=== PATIENT | male | born 1975 | race Caucasian/White ===

== ENCOUNTER → 2018-11-06 09:38 | Outpatient (CLI) | payer OTHER, SELFPAY ==
[2018-11-06 10:32] LABS: Blood Urea Nitrogen 16 mg/dL (9-20); Calcium 9.8 mg/dL (8.4-10.2); Carbon Dioxide 25 mmol/L (22-32); Chloride 103 mmol/L (98-107); Cholesterol 209 mg/dL (140-199); Estimated Glomerular Filt Rate > 60.0 mL/min (>60); Glucose 103 mg/dL (70-100); HDL Cholesterol 38 mg/dL (40-60); HEMOLYSIS < 15 (0-50); LDL Cholesterol Calculated 147 mg/dL (<100); Potassium 4.7 mmol/L (3.4-5.1); Sodium 140 mmol/L (137-145); Triglycerides 122 mg/dL (35-150)
[2018-11-06 11:24] LABS: Vitamin D 25 Hydroxy (D3) 54.4 ng/mL (30.0-100.0)
[2018-11-06 11:40] LABS: Thyroid Stimulating Hormone 0.69 uIU/mL (0.47-4.68)
== END ==
PROVIDERS: PCP Student in an Organized Health Care Education/Training Program; Visit Provider Student in an Organized Health Care Education/Training Program
DX: E55.9 Vitamin D deficiency, unspecified (principal); E78.2 Mixed hyperlipidemia; I10 Essential (primary) hypertension; N14.1 Nephropathy induced by other drugs, medicaments and biological substances; T46.5X1A Poisoning by other antihypertensive drugs, accidental (unintentional), initial encounter
CPT/HCPCS: 36415; 80048; 80061; 82306; 84443

== ENCOUNTER 2019-01-10 10:51 | Emergency (ER) | payer OTHER, SELFPAY ==
[2019-01-10 10:56] VITALS: BP 184/98; PULSE 77; RESP 18; TEMP 37.1; O2SAT 100
[2019-01-10 11:21] VITALS: BP 172/91; PULSE 77; RESP 22; O2SAT 98
--- NOTE | 2019-01-10 11:21 | DI.RAD.S_ITS ---
PROCEDURE: XR CHEST 1V INDICATIONS: chest pain TECHNIQUE: One view of the chest was acquired. COMPARISON: None. FINDINGS: Surgical changes and devices: None. Lungs and pleura: Lungs are clear. No pleural effusions or pneumothorax. Mediastinum: Mediastinal contours appear normal. Heart size is normal. Bones and chest wall: No suspicious bony lesions. Overlying soft tissues appear unremarkable. IMPRESSION: No acute cardiopulmonary disease. Dictated by: Billy Clark M.D. on 01/10/2019 at 12:10 Approved by: Billy Clark M.D. on 01/10/2019 at 12:11
--- NOTE | 2019-01-10 11:24 | ED_ITS ---
HPI - General Adult General Chief complaint: Hypertension Stated complaint: BLOOD PRESSURE HIGH,DISCOMFORT L SHOULDER Time Seen by Provider: 01/10/19 11:13 Source: patient Mode of arrival: ambulatory Limitations: no limitations History of Present Illness HPI narrative: Patient is a 43-year-old male presents with elevated blood pressure. He has a history of hypertension takes atenolol and lisinopril. His atenolol he states was recently increased under. However he takes his blood pressure once a week he took it on Saturday he noted it was a little elevated. He took it again today remained elevated. He has also been having ongoing left shoulder discomfort for weeks. It is not any worse today. He has no chest pain. His shoulder hurts whenever he moves it. Related Data Previous Rx's Medication Instructions Recorded atenolol 50 mg tablet 75 mg PO QDAY #135 tab 11/11/18 lisinopril 40 mg tablet 40 mg PO QDAY #90 tab 11/11/18 Allergies Allergy/AdvReac Type Severity Reaction Status Date / Time hydrochlorothiazide AdvReac Severe Arrythmia Verified 11/06/18 09:30 Review of Systems Review of Systems GENERAL: Denies chills, fatigue, malaise, fever, sweats, travel HEENT: Denies sinus pain, ear pain, sore throat, difficulty swallowing, neck pain RESPIRATORY: Denies dyspnea, cough, wheezing, hemoptysis, sputum. CARDIOVASCULAR: See HPI GASTROINTESTINAL: Denies nausea, vomiting, abdominal pain, diarrhea, constipation, melena. : Denies dysuria, frequency, incontinence, hematuria, urinary retention, flank pain. MUSCULOSKELETAL: Denies weakness, joint pain, or bony pain SKIN: No rash, no erythema, no pruritus NEUROLOGIC: Denies weakness, dizziness, headache, numbness, change in speech, confusion PSYCHIATRIC: No concerning psychosocial issues. 12 point review of systems is negative except for those stated above and HPI [facility] Medical History Atrial fibrillation (Chronic) Hypertension (Chronic) Family History Father No problems noted. Social History Smoking Status: Never smoker Family History Father No problems noted. Social History Smoking Status: Never smoker Exam Initial Vital Signs Initial Vital Signs: Vital Signs Temperature 98.7 F 01/10/19 10:56 Pulse Rate 77 01/10/19 10:56 Respiratory Rate 18 01/10/19 10:56 Blood Pressure 184/98 H 01/10/19 10:56 Pulse Oximetry 100 01/10/19 10:56 GENERAL: Well-appearing, well-nourished and in no acute distress. HEENT: Head atraumatic,EOMI, pupils reactive CARDIOVASCULAR: Regular rate and rhythm without murmurs, rubs or gallops. RESPIRATORY: Breath sounds equal bilaterally, no wheezes rales or rhonchi. ABDOMEN: Soft, nontender. Normoactive bowel sounds all 4 quadrants. No guarding or rebound. EXTREMITIES: Normal range of motion, no clubbing or edema. Neurovascularly intact NEUROLOGICAL: Alert and oriented x4.Normal gait and speech. Cranial nerves II through XII grossly intact. SKIN: Warm, dry, no laceration, no petechiae, no rashes or lesions. Course Orders Ordered: ED Orders 01/10/19 11:21 XR chest 1V Stat 01/10/19 11:45 Complete Blood Count AUTO DIFF Stat Comprehensive Metabolic Panel Stat Lipase Stat Troponin & CK Cardiac Panel Stat Vital Signs - 8 hr 01/10/19 10:56 01/10/19 11:21 01/10/19 12:00 Temperature 98.7 F Pulse Rate 77 77 80 Respiratory Rate 18 22 16 Blood Pressure 184/98 H Blood Pressure [Left Arm] 172/91 H 166/92 H Pulse Oximetry 100 98 99 01/10/19 12:09 01/10/19 12:52 Temperature Pulse Rate 72 74 Respiratory Rate 71 H 14 Blood Pressure Blood Pressure [Left Arm] 166/92 H 166/100 H Pulse Oximetry 98 Medical Decision Making Lab Data Lab results reviewed: Yes I reviewed the patient's lab results. Result diagrams: 01/10/19 11:45 01/10/19 11:45 Lab Results 01/10/19 01/10/19 Range/Units 11:45 11:45 WBC 4.7 (4.5-11.0) X10^3/uL RBC 4.82 (4.5-5.9) X10^6/uL Hgb 14.9 (13.5-17.5) g/dL Hct 42.1 (41-53) % MCV 87.3 (80-100) fL MCH 30.9 (26-34) PG MCHC 35.4 (30-36) % RDW 12.8 (11.6-14.8) % Plt Count 183 (150-400) X10^3/uL Neut % (Auto) 65.8 (50-75) % Lymph % (Auto) 21.4 L (25-40) % [place] % (Auto) 8.9 (3-14) % Eos % (Auto) 3.4 (2-4) % Baso % (Auto) 0.5 (0-2) % Neut # (Auto) 3100 (3595-6338) /uL Lymph # (Auto) 1000 L (4628-5167) /uL [place] # (Auto) 400 (0-900) /uL Eos # (Auto) 200 (0-450) /uL Baso # (Auto) 0 (0-100) /uL Sodium 141 (137-145) mmol/L Potassium 3.8 (3.4-5.1) mmol/L Chloride 105 (98-107) mmol/L Carbon Dioxide 26 (22-32) mmol/L BUN 15 (9-20) mg/dL Creatinine 0.90 (0.66-1.25) mg/dL Estimated GFR > 60.0 (>60) mL/min BUN/Creatinine Ratio 16.7 (6-22) Glucose 122 H (70-100) mg/dL Calcium 9.5 (8.4-10.2) mg/dL Total Bilirubin 0.8 (0.2-1.3) mg/dL AST 24 (17-59) IU/L ALT 34 (21-72) IU/L Alkaline Phosphatase 71 (38-126) U/L Total Creatine Kinase 25 L (55-170) U/L CK-MB (CK-2) TNP CK-MB (CK-2) Rel Index TNP Troponin I < 0.012 (0.01-0.034) ng/mL Total Protein 7.1 (6.3-8.2) g/dL Albumin 4.6 (3.5-5.0) g/dL Globulin 2.5 (1.7-4.1) g/dL Albumin/Globulin Ratio 1.8 (1.0-2.8) Lipase 27 (23-300) U/L Imaging Data Chest x-ray: Radiologist's impression: PROCEDURE: XR CHEST 1V INDICATIONS: chest pain TECHNIQUE: One view of the chest was acquired. COMPARISON: None. FINDINGS: Surgical changes and devices: None. Lungs and pleura: Lungs are clear. No pleural effusions or pneumothorax. Mediastinum: Mediastinal contours appear normal. Heart size is normal. Bones and chest wall: No suspicious bony lesions. Overlying soft tissues appear unremarkable. IMPRESSION: No acute cardiopulmonary disease. Dictated by: Billy Clark M.D. on 01/10/2019 at 12:10 ECG Data Attestation: I personally reviewed and interpreted this ECG as follows: Prior ECG tracings: available for review Interpretation: EKG 1. Normal sinus rhythm rate no ST changes does have some large T-waves no prior EKG 2. Normal sinus rhythm rate 77 T-waves remain unchanged no ST depressions as MDM Narrative Medical decision making narrative: Patient has had chronic ongoing left shoulder discomfort worse with movement not any worse today. He remains completely asymptomatic in the ED. His blood pressure remains relatively unchanged although slightly decreased. At this time I recommend he follow up with his PCP for management of his chronic hypertension no sign of end-organ. Discharge Plan Departure Patient Disposition: Home Clinical Impression: Hypertension Qualifiers: Hypertension type: essential hypertension Qualified Code(s): I10 - Essential (primary) hypertension Discharge Date/Time: 01/10/19 13:00 Interventions: ED Discharge Assessment Last Done: 01/10/19 12:59 Instructions: DI for High Blood Pressure Activity Restrictions/Additional Instructions: *You have been diagnosed with hypertension *What to do: At this time please discuss with her primary care provider for management of your blood pressure. Her medications will likely need to be adjusted. Recommend taking her blood pressure once daily at the same time every day and logging *Continue to take medications as directed *Follow up with your primary care provider in 2-3 days *Return to ER if you should have chest pain shortness of breath headache or any new, worsening or concerning symptoms Prescriptions: No Action atenolol 50 mg tablet 75 mg PO QDAY Qty: 135 RF: 3 lisinopril [Zestril] 40 mg tablet 40 mg PO QDAY Qty: 90 RF: 3 Referrals: Heriberto Jimenes MD [Primary Care Provider] -
--- NOTE | 2019-01-10 11:25 | PC.NURSE ---
Pt with history of hypertension. Stated took bp this morning was elevated. Takes atenolol and lisinopril for bp. Reports having shoulder pain over the past few days. Is unsure if related to bp.
[2019-01-10 12:00] VITALS: BP 166/92; PULSE 80; RESP 16; O2SAT 99
[2019-01-10 12:08] LABS: Add Manual Diff / Slide Review NO; Basophils Absolute Auto 0 /uL (0-100); Basophils Percent Auto 0.5 % (0-2); Eosinophils Absolute Auto 200 /uL (0-450); Eosinophils Percent Auto 3.4 % (2-4); Hematocrit 42.1 % (41-53); Hemoglobin 14.9 g/dL (13.5-17.5); Lymphocytes Absolute Auto 1000 /uL (1100-4500); Lymphocytes Percent Auto 21.4 % (25-40); Mean Corpuscular HGB Conc 35.4 % (30-36); Mean Corpuscular Hemoglobin 30.9 PG (26-34); Mean Corpuscular Volume 87.3 fL (80-100); Monocytes Absolute Auto 400 /uL (0-900); Monocytes Percent Auto 8.9 % (3-14); Neutrophils Absolute Auto 3100 /uL (1500-7000); Neutrophils Percent Auto 65.8 % (50-75); Platelet Count 183 X10^3/uL (150-400); Red Blood Cell Count 4.82 X10^6/uL (4.5-5.9); Red Cell Distribution Width 12.8 % (11.6-14.8); White Blood Cell Count 4.7 X10^3/uL (4.5-11.0)
[2019-01-10 12:09] VITALS: BP 166/92; PULSE 72; RESP 71
[2019-01-10 12:19] LABS: Alanine Aminotransferase 34 IU/L (21-72); Albumin 4.6 g/dL (3.5-5.0); Albumin Globulin Ratio 1.8 (1.0-2.8); Alkaline Phosphatase 71 U/L (38-126); Aspartate Aminotransferase 24 IU/L (17-59); BUN Creatinine Ratio 16.7 (6-22); Bilirubin Total 0.8 mg/dL (0.2-1.3); Blood Urea Nitrogen 15 mg/dL (9-20); Calcium 9.5 mg/dL (8.4-10.2); Carbon Dioxide 26 mmol/L (22-32); Chloride 105 mmol/L (98-107); Creatine Kinase 25 U/L (55-170); Estimated Glomerular Filt Rate > 60.0 mL/min (>60); Globulin 2.5 g/dL (1.7-4.1); Glucose 122 mg/dL (70-100); HEMOLYSIS 17 (0-50); Lipase 27 U/L (23-300); Potassium 3.8 mmol/L (3.4-5.1); Sodium 141 mmol/L (137-145); Total Protein 7.1 g/dL (6.3-8.2)
[2019-01-10 12:30] LABS: Troponin I < 0.012 ng/mL (0.01-0.034)
[2019-01-10 12:52] VITALS: BP 166/100; PULSE 74; RESP 14; O2SAT 98
== END 2019-01-10 13:00 | disposition home or self-care (01) ==
PROVIDERS: Emergency Provider Emergency Medicine; PCP Student in an Organized Health Care Education/Training Program
DX: I10 Essential (primary) hypertension (principal)
CPT/HCPCS: 36591; 71045; 80053; 82550; 83690; 84484; 85025; 93005; 99283; 99284

== ENCOUNTER → 2019-02-14 08:02 | Outpatient (CLI) | payer OTHER, SELFPAY ==
[2019-02-14 09:29] LABS: Blood Urea Nitrogen 19 mg/dL (9-20); Calcium 9.6 mg/dL (8.4-10.2); Carbon Dioxide 29 mmol/L (22-32); Chloride 101 mmol/L (98-107); Estimated Glomerular Filt Rate > 60.0 mL/min (>60); Glucose 119 mg/dL (70-100); HEMOLYSIS < 15 (0-50); Sodium 138 mmol/L (137-145)
== END ==
PROVIDERS: PCP Student in an Organized Health Care Education/Training Program; Visit Provider Student in an Organized Health Care Education/Training Program
DX: I10 Essential (primary) hypertension (principal); Z79.899 Other long term (current) drug therapy
CPT/HCPCS: 36415; 80048

== ENCOUNTER → 2020-03-04 12:02 | Outpatient (CLI) | payer OTHER, SELFPAY ==
[2020-03-04 14:58] LABS: Creatinine Urine Random 150.7 mg/dL
[2020-03-04 15:03] LABS: Microalbumi Creatinin Ratio Ur 15.9 ug/mg CR (<30); Microalbumin Urine Random 2.4 mg/dL (0-1.6)
[2020-03-04 18:16] LABS: BUN Creatinine Ratio 16.7 (6-22); Blood Urea Nitrogen 18 mg/dL (9-20); Calcium 10.2 mg/dL (8.4-10.2); Carbon Dioxide 27 mmol/L (22-32); Chloride 102 mmol/L (98-107); Estimated Glomerular Filt Rate > 60.0 mL/min (>60); Glucose 110 mg/dL (70-100); HEMOLYSIS < 15 (0-50); Potassium 4.2 mmol/L (3.4-5.1); Sodium 139 mmol/L (137-145)
== END ==
PROVIDERS: PCP Student in an Organized Health Care Education/Training Program; Referring Provider Student in an Organized Health Care Education/Training Program; Visit Provider Student in an Organized Health Care Education/Training Program
DX: I10 Essential (primary) hypertension (principal)
CPT/HCPCS: 36415; 80048; 82043; 82570

== ENCOUNTER → 2021-01-19 08:47 | Outpatient (CLI) | payer OTHER, SELFPAY ==
[2021-01-19] MEDS: COVID-19 VACC #1, MRNA(MOD) 100 MCG/0.5 ML VIAL IM (08:53)
== END ==
PROVIDERS: PCP Student in an Organized Health Care Education/Training Program; Visit Provider Internal Medicine
DX: Z23 Encounter for immunization (principal)
CPT/HCPCS: 0011A; 91301

== ENCOUNTER → 2021-02-16 08:36 | Outpatient (CLI) | payer OTHER, SELFPAY ==
[2021-02-16] MEDS: COVID-19 VACC #2, MRNA(MOD) 100 MCG/0.5 ML VIAL IM (08:42)
== END ==
PROVIDERS: PCP Student in an Organized Health Care Education/Training Program; Visit Provider Internal Medicine
DX: Z23 Encounter for immunization (principal)
CPT/HCPCS: 0012A; 91301

== ENCOUNTER → 2021-04-25 10:44 | Outpatient (CLI) | payer OTHER, SELFPAY ==
[2021-04-25 12:03] LABS: BUN Creatinine Ratio 15.6 (6-22); Blood Urea Nitrogen 17 mg/dL (9-20); Calcium 9.9 mg/dL (8.4-10.2); Carbon Dioxide 27 mmol/L (22-32); Chloride 103 mmol/L (98-107); Estimated Glomerular Filt Rate > 60.0 mL/min (>60); Glucose 118 mg/dL (70-100); HEMOLYSIS < 15 (0-50); Potassium 3.9 mmol/L (3.4-5.1); Sodium 140 mmol/L (137-145)
== END ==
PROVIDERS: PCP Student in an Organized Health Care Education/Training Program; Referring Provider Student in an Organized Health Care Education/Training Program; Visit Provider Student in an Organized Health Care Education/Training Program
DX: I10 Essential (primary) hypertension (principal)
CPT/HCPCS: 36415; 80048

== ENCOUNTER → 2022-06-21 08:33 | Outpatient (CLI) | payer OTHER, SELFPAY ==
[2022-06-21 11:22] LABS: BUN Creatinine Ratio 14.3 (6-22); Blood Urea Nitrogen 18 mg/dL (9-20); Calcium 9.7 mg/dL (8.4-10.2); Carbon Dioxide 29 mmol/L (22-32); Chloride 100 mmol/L (98-107); Estimated Glomerular Filt Rate > 60 mL/min (>60); Glucose 116 mg/dL (70-100); HEMOLYSIS < 15 (0-50); Potassium 4.5 mmol/L (3.4-5.1); Sodium 138 mmol/L (137-145)
[2022-06-21 15:06] LABS: Creatinine Urine Random 68.6 mg/dL
[2022-06-21 15:10] LABS: Microalbumi Creatinin Ratio Ur 10.2 ug/mg CR (<30); Microalbumin Urine Random 0.7 mg/dL (0-1.6)
== END ==
PROVIDERS: PCP Student in an Organized Health Care Education/Training Program; Referring Provider Student in an Organized Health Care Education/Training Program; Visit Provider Student in an Organized Health Care Education/Training Program
DX: I10 Essential (primary) hypertension (principal)
CPT/HCPCS: 36415; 80048; 82043; 82570

== ENCOUNTER → 2023-08-22 07:03 | Outpatient (CLI) | payer OTHER, SELFPAY ==
[2023-08-22 08:42] LABS: Add Manual Diff / Slide Review NO; Basophils Absolute Auto 0 /uL (0-100); Basophils Percent Auto 0.5 % (0-2); Eosinophils Absolute Auto 200 /uL (0-450); Eosinophils Percent Auto 3.7 % (2-4); Hemoglobin 14.8 g/dL (13.5-17.5); Lymphocytes Absolute Auto 1200 /uL (1100-4500); Lymphocytes Percent Auto 25.3 % (25-40); Mean Corpuscular Volume 86.1 fL (80-100); Monocytes Absolute Auto 500 /uL (0-900); Monocytes Percent Auto 9.3 % (3-14); Neutrophils Absolute Auto 3000 /uL (1500-7000); Neutrophils Percent Auto 61.2 % (50-75); Platelet Count 184 X10^3/uL (150-400); Red Blood Cell Count 4.76 X10^6/uL (4.5-5.9); Red Cell Distribution Width 12.8 % (11.6-14.8); White Blood Cell Count 4.9 X10^3/uL (4.5-11.0)
[2023-08-22 08:49] LABS: Alanine Aminotransferase 23 IU/L (<50); Albumin 4.8 g/dL (3.5-5.0); Albumin Globulin Ratio 2.1 (1.0-2.8); Alkaline Phosphatase 58 U/L (38-126); Aspartate Aminotransferase 30 IU/L (17-59); Bilirubin Total 1.2 mg/dL (0.2-1.3); Blood Urea Nitrogen 16 mg/dL (9-20); Calcium 9.8 mg/dL (8.4-10.2); Carbon Dioxide 28 mmol/L (22-32); Chloride 100 mmol/L (98-107); Cholesterol 194 mg/dL (140-199); Estimated Glomerular Filt Rate > 60 mL/min (>60); Globulin 2.3 g/dL (1.7-4.1); Glucose 107 mg/dL (70-100); HDL Cholesterol 49 mg/dL (40-60); HEMOLYSIS < 15 (0-50); LDL Cholesterol Calculated 114 mg/dL (<100); Potassium 4.1 mmol/L (3.4-5.1); Sodium 137 mmol/L (137-145); Total Protein 7.1 g/dL (6.3-8.2); Triglycerides 154 mg/dL (35-150)
[2023-08-22 09:12] LABS: TSH w/ Reflex to FT4 1.12 uIU/mL (0.47-4.68)
== END ==
PROVIDERS: Referring Provider Physician Assistant; Visit Provider Physician Assistant
DX: I10 Essential (primary) hypertension (principal)
CPT/HCPCS: 36415; 80053; 80061; 84443; 85025

== ENCOUNTER → 2023-11-20 10:02 | Outpatient (CLI) | payer OTHER, SELFPAY ==
[2023-11-21 05:39] LABS: Fecal Immunochemical Test Negative (Negative)
== END ==
PROVIDERS: PCP Student in an Organized Health Care Education/Training Program; Referring Provider Student in an Organized Health Care Education/Training Program; Visit Provider Student in an Organized Health Care Education/Training Program
DX: Z12.11 Encounter for screening for malignant neoplasm of colon (principal)
CPT/HCPCS: 82274

== ENCOUNTER → 2024-04-07 09:13 | Outpatient (CLI) | payer OTHER, SELFPAY | LOC: LAB 09:14 | PROVIDERS: PCP Student in an Organized Health Care Education/Training Program; Referring Provider Internal Medicine Cardiovascular Disease; Visit Provider Internal Medicine Cardiovascular Disease | DX: I10 Essential (primary) hypertension (principal) | CPT/HCPCS: 36415; 82088; 84244 ==

== ENCOUNTER → 2024-04-21 13:41 | Outpatient (CLI) | payer OTHER, SELFPAY ==
--- NOTE | 2024-04-21 13:42 | DI.ECHO.S_ITS ---
[facility] +---------+ [facility] : : [address] : : [place] : : [id number] : : Phone: [phone] Echocardiogram Report + + :Name: JUAN HERBERT Study Date: 04/21/2024 Height: 74 in : :[facility] ReadingLocation: Weight: 195 lb : : Gender: Male BSA: 2.1 m2 : :: 1975 Age: 48 yrs BP: 158/98 mmHg: :Reason For Study: FAMILY HISTORY OF CAD : :Ordering Physician: ELY, : :BETHANIE Performed By: Deepa Shah : :Referring: BETHANIE FOX : + + Interpretation Summary 1) Normal left ventricular thickness, size, wall motion, and systolic function (EF 55-60%). 2) Normal right ventricular size and function. 3) No significant valvular abnormalities. 4) No prior Echo available for comparison. Procedure: A two-dimensional transthoracic echocardiogram with color flow and Doppler was performed. The study quality was technically adequate. There is no prior echocardiogram noted for this patient. The patient was in sinus rhythm with heart rates between 72-90 bpm during the exam. Left Ventricle: The left ventricle is normal in size and wall thickness. The ejection fraction is estimated to be 55-60%. Left ventricular systolic function appears normal without focal wall motion abnormalities. Diastolic parameters suggest a relaxation abnormality of the left ventricle, consistent with probable normal filling pressures. Right Ventricle: The right ventricle is normal in size and function. Atria: The left atrial size is normal. Right atrial size is normal. There is no Doppler evidence for an interatrial shunt. Mitral Valve: The mitral valve is normal in structure and function. There is trace mitral regurgitation. Aortic Valve: The aortic valve is trileaflet. The aortic valve opens well. There is no aortic valve stenosis. No aortic regurgitation is present. Tricuspid Valve: The tricuspid valve is normal in structure and function. There is trace tricuspid regurgitation. Pulmonic Valve: The pulmonic valve leaflets are thin and pliable; valve motion is normal. There is no pulmonic valvular regurgitation. Great Vessels: The aortic root is normal size. The dimensions of the ascending aorta are normal. The IVC is of normal diameter and collapses greater than 50% with a sniff. This suggests a low right atrial pressure of 3 mm Hg. Pericardium/ Pleura There is no pericardial effusion. There is no pleural effusion. MMode/2D Measurements & Calculations LVIDd: 5.6 cm LVOT diam: 2.1 cm LVIDs: 3.7 cm Ao root diam: 3.7 cm FS: 33.5 % asc Aorta Diam: 3.3 cm IVSd: 0.79 cm Ao Arch Diam (Prox Trans): 2.4 cm LVPWd: 0.77 cm LV hudson. diameter/BSA (cm/m^2): 2.6 LV sys. diameter/BSA (cm/m^2): 1.7 LA A2 area: 22.1 cm2 RA long axis: 4.9 cm LA A4 area: 16.3 cm2 RA area: 17.6 cm2 LA length (vol): 5.3 cm RA vol: 53.7 ml LA vol: 57.5 ml RA : 25.0 ml/m2 LA vol index: 26.7 ml/m2 IVC diam: 1.6 cm RVD1 (basal): 4.1 cm RVD2 (mid): 2.7 cm TAPSE: 1.8 cm Doppler Measurements & Calculations Ao V2 max: 124.0 cm/sec LVOT Max Shane: 95.2 cm/sec Ao V2 mean: 87.4 cm/sec LV V1 max P.6 mmHg Ao max P.1 mmHg LV V1 VTI: 17.7 cm Ao mean P.4 mmHg SRAVAN(I,D): 2.8 cm2 Ao V2 VTI: 21.0 cm SRAVAN(V,D): 2.6 cm2 sev ratio: 0.85 SRAVAN indexed to BSA (cm^2/m^2): 1.3 MV E max shane: 50.4 cm/sec PA V2 max: 109.1 cm/sec MV A max shane: 47.5 cm/sec PA V2 mean: 73.0 cm/sec MV E/A: 1.1 PA mean P.5 mmHg Med Peak E' Shane: 9.6 cm/sec PA pr(Accel): 31.5 mmHg E/E' med: 5.2 Lat Peak E' Shane: 13.2 cm/sec E/E' lat: 3.8 E/e' average: 4.5 MV dec time: 0.14 sec SV(LVOT): 59.1 ml Reading Physician:04:36 PM
--- NOTE | 2024-04-21 17:05 | DI.NM.S_ITS ---
DATE OF SERVICE: 04/21/2024 PROCEDURE: Exercise stress test. INDICATIONS: Paroxysmal AFib, hypertension. CARDIAC STRESS: The patient underwent exercise stress test under the supervision of an attending staff. He walked on Sherif protocol for 13 minutes and achieved maximum heart rate of 182, which was 105% of target heart rate. SHELLEY -16%. Achieved 14.8 METs of workload. Baseline blood pressure 132/100 and peak blood pressure 202/96 mmHg. Baseline rhythm is sinus. During stress, no convincing ischemic changes seen. No significant arrhythmias. The patient had some shortness of breath. Normal recovery. CONCLUSION: Exercise stress test is negative for inducible ischemia. Good exercise capacity. Baseline hypertensive with blood pressure 132/100 and peak blood pressure 202/96 mmHg. No significant arrhythmias. No anginal symptoms other than some shortness of breath. Overall, low-risk exercise stress test. Ramesh Mi - MICHAEL/agustin/NITA doc#: [id number]/job#: [id number] dd: 04/21/2024 16:27:00 dt: 04/21/2024 16:54:00 DICTATING /COPIES TO: Zonia Larose MD COPIES MNE: JOSÉ MIGUEL;
== END ==
PROVIDERS: PCP Student in an Organized Health Care Education/Training Program; Referring Provider Internal Medicine Cardiovascular Disease; Visit Provider Internal Medicine Cardiovascular Disease
DX: I10 Essential (primary) hypertension (principal); Z82.49 Family history of ischemic heart disease and other diseases of the circulatory system; I48.0 Paroxysmal atrial fibrillation
CPT/HCPCS: 93017; 93306

== ENCOUNTER → 2025-01-21 07:02 | Outpatient (CLI) | payer OTHER, SELFPAY ==
[2025-01-21 07:44] LABS: Creatinine Urine Random 110.83 mg/dL
[2025-01-21 08:33] LABS: Add Manual Diff / Slide Review NO; Alanine Aminotransferase 26 IU/L (<50); Albumin 5.1 g/dL (3.5-5.0); Albumin Globulin Ratio 2.3 (1.0-2.8); Alkaline Phosphatase 75 U/L (38-126); Aspartate Aminotransferase 32 IU/L (17-59); BUN Creatinine Ratio 12.5 (6-22); Basophils Absolute Auto 0 /uL (0-100); Basophils Percent Auto 0.5 % (0-2); Bilirubin Total 1.4 mg/dL (0.2-1.3); Blood Urea Nitrogen 14 mg/dL (9-20); Carbon Dioxide 26 mmol/L (22-32); Chloride 98 mmol/L (98-107); Cholesterol 208 mg/dL (140-199); Eosinophils Absolute Auto 200 /uL (0-450); Eosinophils Percent Auto 2.9 % (2-4); Estimated Glomerular Filt Rate > 60 mL/min (>60); Globulin 2.2 g/dL (1.7-4.1); Glucose 120 mg/dL (70-100); HDL Cholesterol 52 mg/dL (40-60); HEMOLYSIS < 15 (0-50); Hematocrit 43.3 % (41-53); Hemoglobin 15.7 g/dL (13.5-17.5); LDL Cholesterol Calculated 113 mg/dL (<100); Lymphocytes Absolute Auto 1200 /uL (1100-4500); Lymphocytes Percent Auto 20.1 % (25-40); Mean Corpuscular HGB Conc 36.3 % (30-36); Mean Corpuscular Volume 85.3 fL (80-100); Monocytes Absolute Auto 500 /uL (0-900); Monocytes Percent Auto 7.5 % (3-14); Neutrophils Absolute Auto 4200 /uL (1500-7000); Platelet Count 198 X10^3/uL (150-400); Red Blood Cell Count 5.08 X10^6/uL (4.5-5.9); Red Cell Distribution Width 13.1 % (11.6-14.8); Sodium 135 mmol/L (137-145); Total Protein 7.3 g/dL (6.3-8.2); Triglycerides 215 mg/dL (35-150); White Blood Cell Count 6.1 X10^3/uL (4.5-11.0)
[2025-01-21 09:03] LABS: Prostate Specific Antigen 2.37 ng/mL (0.10-4.00)
[2025-01-22 14:36] LABS: Fecal Immunochemical Test Negative (Negative)
== END ==
PROVIDERS: PCP Student in an Organized Health Care Education/Training Program; Referring Provider Student in an Organized Health Care Education/Training Program; Visit Provider Student in an Organized Health Care Education/Training Program
DX: I10 Essential (primary) hypertension (principal); E78.2 Mixed hyperlipidemia; Z12.5 Encounter for screening for malignant neoplasm of prostate; Z12.11 Encounter for screening for malignant neoplasm of colon
CPT/HCPCS: 36415; 80053; 80061; 82043; 82274; 82570; 84153; 85025